=== PATIENT | female | born 1985 | race Caucasian/White ===

== ENCOUNTER → 2016-10-14 | Outpatient (CLI) | payer OTHER ==
--- NOTE | 2016-10-14 10:38 | US ---
EXAMINATION TYPE: US OB anatomy transabd DATE OF EXAM: 10/14/2016 10:20 AM COMPARISON: NONE HISTORY: spine not well visualized on prior exam at [facility] TECHNIQUE: Transabdominal (TA) pelvic ultrasound. EXAM MEASUREMENTS: GESTATIONAL AGE / DATING Physician Established: (28 weeks/0 days) EDC: 01/06/17 Dates by LMP: not established Dates by First Scan: no prior exam here Dates by Current Scan for: (27 weeks/4 days) EDC: 01/09/17 SURVEY IUP: Single PLACENTA: Posterior PREVIA: No previa YASH: 12.8 cm Normal CERVICAL LENGTH (transabdominal: norm > 3.0cm): 3.4 cm BIOMETRY PRESENTATION: Vertex LIE: Longitudinal BPD: 6.8 cm 27 weeks / 3 days HC: 25.2 cm 27 weeks / 3 days AC: 24.2 cm 28 weeks / 3 days FL: 5.4 cm 28 weeks / 3 days ESTIMATED WEIGHT IN GRAMS: 1196 grams ESTIMATED WEIGHT IN LBS/OZS: 2 lbs. 10 oz. WEIGHT PERCENTAGE BASED ON ESTABLISHED DATE: 46.2 % HC/AC: 1.05 normal FL/AC: 22.14 normal HEART RATE: 147 bpm RHYTHM: Normal ANATOMY SEEN (within normal limits): * Lateral Vent (< 1 cm) 0.5 cm * Cisterna Magna (< 1.1 cm) 0.4 cm * Nuchal Fold (< 0.6 cm) 0.4 cm * Cerebellum (varies with age) 3.0 cm Choroid Plexus (bilateral) Midline Falx Cavus Septi Pellucidi Four Chamber Heart Outflow tracts: LVOT/RVOT Stomach Situs Nose / Lips Diaphragm Kidneys (bilateral) Bladder Cord Insert Three Vessel Cord Longitudinal Spine Transverse Spine Arms (bilateral) Legs (bilateral) TECHNOLOGIST IMPRESSION: Single viable IUP 27wks/4days with JUSTIN of 01/09/17 Single live intrauterine gestation is identified on current study. There is no ultrasound evidence fo r placenta previa. Amniotic fluid index is within normal limits. biometry measurements are jennifer ruent and within normal limits. Detailed anatomical survey shows no suspicious abnormality during edu l-time scanning and still images saved. There is satisfactory 2 view visualization of entire spine id entified. IMPRESSION: As above, normal study.
== END | disposition home or self-care (01) ==
LOC: RADUSWWP 09:33
PROVIDERS: ATTEND Obstetrics & Gynecology
DX: Z36 Encounter for antenatal screening of mother (principal); Z3A.27 27 weeks gestation of pregnancy
CPT/HCPCS: 76811

== ENCOUNTER 2016-12-30 05:59 | Inpatient (IN) | payer OTHER ==
[2016-12-30 06:35] VITALS: BMI 41.1
[2016-12-30] MEDS ORDERED: CITRIC ACID-SODIUM CITRATE 15 ML CUP PO ONE (06:40)
[2016-12-30] MEDS ORDERED: ceFAZolin 2 GM in SODIUM CHLORIDE 0.9% 100 ML IVPB ONE (06:40)
[2016-12-30] MEDS: LACTATED RINGERS 1,000 ML IV SCH ×3 (06:43→23:21)
[2016-12-30 07:18] LABS: Basophils % (A) 0 %; CHCM 35.4; Eosinophils # (A) 0.1 k/uL (0-0.7); Eosinophils % (A) 1 %; HCT 34.2 % (34.0-46.0); HDW 3.51; HGB 11.9 gm/dL (11.4-16.0); Luc # (Auto) 0.28; Luc % (Auto) 3; Lymphocytes # (A) 2.3 k/uL (1.0-4.8); Lymphocytes % (A) 28 %; MCH 30.7 pg (25.0-35.0); MCHC 34.8 g/dL (31.0-37.0); MCV 88.3 fL (80.0-100.0); Mean Platelet Volume 7.3; Monocytes # (A) 0.6 k/uL (0-1.0); Monocytes % (A) 7 %; Neutrophils # (A) 5.1 k/uL (1.3-7.7); Neutrophils % (A) 61 %; Poikilocytosis Slight; RBC 3.88 m/uL (3.80-5.40); RDW 13.9 % (11.5-15.5); WBC 8.3 k/uL (3.8-10.6); WBC (Perox) 8.83
[2016-12-30] MEDS ORDERED: KETOROLAC 30 MG/ML 1 ML VIAL ONE (07:58)
[2016-12-30] MEDS ORDERED: OXYTOCIN 10 UNIT/ML 1 ML VIAL ONE (07:58)
[2016-12-30] MEDS ORDERED: MORPHINE SULFATE (PF) 0.3 MG/0.3 ML SYR ONE (07:58)
[2016-12-30] MEDS ORDERED: PHENYLEPHRINE-0.9% NACL SYG 1 MG/10 ML SYRINGE ONE (07:58)
[2016-12-30] MEDS ORDERED: ONDANSETRON 4 MG/2 ML VIAL ONE (07:58)
[2016-12-30] MEDS ORDERED: NALBUPHINE 10 MG/ML AMPUL ONE (07:58)
[2016-12-30] MEDS ORDERED: NALOXONE 0.4 MG/ML 1 ML VIAL IV PRN ×2 (08:20→08:46)
[2016-12-30] MEDS ORDERED: MORPHINE SULFATE 4 MG/ML SYRINGE IVP PRN (08:20)
[2016-12-30] MEDS ORDERED: METOCLOPRAMIDE 5 MG/ML 2 ML VIAL IVP PRN ×2 (08:20→08:46)
[2016-12-30] MEDS ORDERED: ONDANSETRON 4 MG/2 ML VIAL IVP PRN ×2 (08:20→08:46)
[2016-12-30] MEDS ORDERED: diphenhydrAMINE 50 MG/ML 1 ML VIAL IVP PRN ×3 (08:20→08:46)
[2016-12-30] MEDS ORDERED: diphenhydrAMINE 25 MG CAP PO PRN (08:46)
[2016-12-30] MEDS ORDERED: diphenhydrAMINE 50 MG CAP PO PRN (08:46)
[2016-12-30] MEDS ORDERED: ACETAMINOPHEN TAB 325 MG TAB PO PRN (08:46)
[2016-12-30] MEDS ORDERED: Acetaminophen-Codeine 300-30mg TAB PO PRN (08:46)
[2016-12-30] MEDS ORDERED: ZOLPIDEM 5 MG TAB PO PRN (08:46)
--- NOTE | 2016-12-30 08:50 | P.HPOB ---
History of Present Illness H&P Date: 12/30/16 Chief Complaint: Intrauterine at term: Previous section: Family planning Patient is a 31-year-old at 39 weeks gestation arise for repeat low transverse section with tubal ligation. Risks/benefits alternatives were reviewed. All questions were answered for her prior to proceeding to the operating room. Precis course has been generally unremarkable macrosomia has been X suspected due to the large size and history of macular baby in the past. Pertinent labs do include O+ blood type Rh antibody negative, rubella, immune hepatitis B surface antigen and RPR were negative. She was late to care this is predominantly due to the fact that she initially bleeding she was moving to [place] and therefore did not initiate care early on. She does have a medical history is Likely and narcolepsy but has had no significant issues with that throughout the gestation. On physical exam vital signs are stable and afebrile. Heart regular, lungs clear, extremities without pain. Abdomen soft gravid uterus is noted. heart tones 140s and have been reactive. Assessment intrauterine at term with previous section. Family planning. Plan repeat low transverse section with tubal ligation Past Medical History Additional Past Medical History / Comment(s): Cataplexy & narcolepsy History of Any Multi-Drug Resistant Organisms: None Reported Past Surgical History: Orthopedic Surgery Additional Past Surgical History / Comment(s): D&C Past Anesthesia/Blood Transfusion Reactions: No Reported Reaction Past Psychological History: No Psychological Hx Reported Smoking Status: Current every day smoker Past Alcohol Use History: None Reported Additional Past Alcohol Use History / Comment(s): Pt states she smokes 1/2 ppd Past Drug Use History: None Reported Additional Drug Use History / Comment(s): quit kit offered, pt refused - Past Family History Father Family Medical History: Hypertension Medications and Allergies Home Medications Medication Instructions Recorded Confirmed Type No Known Home Medications [No 10/29/16 12/30/16 History Known Home Medications] Allergies Allergy/AdvReac Type Severity Reaction Status Date / Time No Known Allergies Allergy Verified 12/30/16 06:20 Exam Osteopathic Statement: *. No significant issues noted on an osteopathic structural exam other than those noted in the History and Physical/Consult. - Vital Signs Vital signs: Vital Signs Temp Pulse Resp BP Pulse Ox 12/30/16 06:19 96.0 F L 110 H 18 135/80 96 Intake and Output 12/29/16 12/30/16 12/30/16 22:59 06:59 14:59 Other: Weight 115.666 kg Results Result Diagrams: 12/30/16 06:25
--- NOTE | 2016-12-30 08:54 | P.OP ---
Date of Procedure: 12/30/16 Preoperative Diagnosis: Intrauterine at term: Previous section: Family planning Postoperative Diagnosis: Same Procedure(s) Performed: Repeat low transverse section with bilateral partial salpingectomy Implants: Anesthesia: spinal Surgeon: Macario Sauceda Faculty Instructor #1: Flory Costa Estimated Blood Loss (ml): 600 IV fluids (ml): 500 Urine output (ml): 200 Pathology: other (Placenta) Condition: stable Disposition: floor Indications for Procedure: Operative Findings: Male scores of 9 and 9 at one and 5 minutes respectively and weight was 9 lbs. 0 oz. Description of Procedure: Patient was taken to the operating suite where a spinal anesthetic was found be adequate. She was prepped and draped in the normal sterile fashion and placed in dorsal supine position with leftward tilt. Initially a Pfannenstiel skin incision was made and this incision was then carried through to underlying layer of the fascia was second knife. Fascia was then nicked in the midline and this opening was extended laterally with Samuels scissors. Superior and inferior aspect of this incision were then grasped tented up and bluntly and sharply dissected off the rectus muscles. Rectus muscles were then divided midline and sharp dissection through the peritoneum was made. This opening was then extended superiorly and inferiorly with good visualization of both bowel bladder. Bladder blade was then placed and the vesicouterine peritoneum identified. This tissue was entered sharply with Metzenbaum scissors and this opening was extended across face the uterus with the bladder flap being digitally created. Knife was then used to incise uterus hemostat was used to completely perforate the uterine incision clear fluid is noted at this point. Incision was then bluntly opened and head was atraumatically delivered. Baby was delivered from left occiput anterior position and once baby's head was delivered mouth nares were bulb suctioned. Anterior posterior shoulders were then delivered gentle downward and upward traction followed by the remainder the baby. Umbilical cord was then clamped cut usual fashion an nursery personnel was present to assume care. Placenta was then delivered intact and Pitocin was added to the IV. Uterus was then exteriorized cleared of clots and debris and closed in 2 layers with 0 Vicryl suture. Should be noted that along the left-hand margin due to the thinness of the lower uterine segment 2 small windows were noted and were closed using transverse suture. Once excellent hemostasis was obtained attention was turned to the fallopian tubes. First the right tube the left tube had a hemostat attached 3 cm from uterine cornu and a weighted window was created in the mesosalpinx. 2 proximal to distal 2-0 silk sutures were then placed and intervening approximately 2 cm segment was excised and tips were cauterized. Blood and debris was then suctioned from the posterior cul-de-sac and the uterus was reinserted into the abdomen. Peritoneal layer was closed with 0 Vicryl suture fascial layer was closed Lobac suture one layer of 3-0 Vicryl was placed in deep subcuticular tissues to reapproximate the skin and the skin was then closed with 3-0 Vicryl in a Meño needle. Sponge, lap, needle counts were all correct 2. Patient was then taken to the recovery room in stable and satisfactory condition.
[2016-12-30] MEDS: KETOROLAC 30 MG/ML 1 ML VIAL IVP PRN (18:38)
[2016-12-30] MEDS: SENNOSIDES-DOCUSATE SODIUM 1 EACH TAB PO SCH (20:02)
[2016-12-31] MEDS: KETOROLAC 30 MG/ML 1 ML VIAL IVP PRN ×2 (00:14→07:46)
[2016-12-31] MEDS: SENNOSIDES-DOCUSATE SODIUM 1 EACH TAB PO SCH ×2 (07:46→21:55)
[2016-12-31 08:02] LABS: Basophils % (A) 0 %; CH 31.2; CHCM 34.7; Eosinophils # (A) 0.1 k/uL (0-0.7); Eosinophils % (A) 1 %; HCT 29.7 % (34.0-46.0); HDW 3.32; HGB 10.2 gm/dL (11.4-16.0); Luc % (Auto) 3; Lymphocytes # (A) 1.8 k/uL (1.0-4.8); Lymphocytes % (A) 19 %; MCHC 34.3 g/dL (31.0-37.0); MCV 90.4 fL (80.0-100.0); Mean Platelet Volume 7.5; Monocytes # (A) 0.5 k/uL (0-1.0); Monocytes % (A) 6 %; Neutrophils # (A) 6.6 k/uL (1.3-7.7); Neutrophils % (A) 71 %; RBC 3.28 m/uL (3.80-5.40); RDW 13.8 % (11.5-15.5); WBC 9.3 k/uL (3.8-10.6); WBC (Perox) 9.77
--- NOTE | 2016-12-31 08:39 | P.PN ---
Progress Note - Text Date: 12-31-16 Time: 707 The patient is status post section Vital signs stable VAS: 0-10 Patient has no complaints of pain. The patient incurred some minimal itching yesterday, this itching is now subsiding. Pain meds to be managed by service.
--- NOTE | 2016-12-31 11:21 | P.PNOBGPC ---
Subjective - Subjective Principal diagnosis: Postop day 1 Interval history: Patient is a very well. She is involuting, voiding tolerating her diet. She is passing flatus. Her abdomen is soft her uterus is firm and her incision is clean dry and intact. Heart regular, lungs clear, extremities without pain. Vital signs are stable she is afebrile. Assessment postop day 1. Plan continue current care. Patient reports: Reports appetite normal : doing well Objective - Vital Signs Latest vital signs: Vital Signs Temp Pulse Resp BP Pulse Ox 12/31/16 08:00 98.2 F 93 16 111/62 97 12/31/16 04:00 98.3 F 103 H 16 113/74 96 12/30/16 23:37 98.2 F 90 16 95/65 96 12/30/16 20:00 97.9 F 86 16 105/62 96 12/30/16 16:00 97.9 F 93 16 120/73 95 Intake and Output 12/30/16 12/31/16 12/31/16 22:59 06:59 14:59 Intake Total 700 Output Total 350 550 Balance -350 150 Intake: IV 400 Lactated Ringers 1,000 ml 400 @ 125 mls/hr IV .Q8H SIMRAN Rx#:[id number] Oral 300 Output: Urine 350 550 Uretheral (Lynn) 150 Other: # Voids 1 1 1 - Labs Labs: Abnormal Lab Results - Last 24 Hours (Table) 12/31/16 Range/Units 07:09 RBC 3.28 L (3.80-5.40) m/uL Hgb 10.2 L (11.4-16.0) gm/dL Hct 29.7 L (34.0-46.0) %
[2016-12-31] MEDS: Acetaminophen-Codeine 300-30mg TAB PO PRN ×2 (15:37→21:55)
[2016-12-31] MEDS: IBUPROFEN 600 MG TAB PO PRN (18:11)
[2017-01-01] MEDS: IBUPROFEN 600 MG TAB PO PRN ×2 (01:33→11:03)
[2017-01-01] MEDS: Acetaminophen-Codeine 300-30mg TAB PO PRN ×2 (07:54→13:53)
[2017-01-01] MEDS: SENNOSIDES-DOCUSATE SODIUM 1 EACH TAB PO SCH (07:54)
[2017-01-01 08:32] VITALS: BP 122/68; PULSE 86; RESP 17; TEMP 97.7
--- NOTE | 2017-01-01 09:37 | P.DS ---
Providers Date of admission: 12/30/16 05:59 Expected date of discharge: 01/01/17 Attending physician: Macario Sauceda Primary care physician: Stated None - Discharge Diagnosis(es) (1) Status post repeat low transverse section Current Visit: Yes Status: Acute Hospital Course: Patient was admitted for a repeat low transverse and underwent this procedure without complication. She'll be discharged home postoperative operative day #2 in stable condition to follow-up with Dr. Sacueda in 1 week. Plan - Discharge Summary New Discharge Prescriptions: New Acetaminophen-Codeine 300-30mg [Tylenol #3] 1 tab PO Q4H PRN #30 tablet PRN Reason: Pain Ibuprofen [Motrin] 600 mg PO Q6HR PRN #30 tab PRN Reason: Pain Discharge Medication List Acetaminophen-Codeine 300-30mg [Tylenol #3] 1 tab PO Q4H PRN #30 tablet [Rx] Ibuprofen [Motrin] 600 mg PO Q6HR PRN #30 tab 12/31/16 [Rx] Follow up Appointment(s)/Referral(s): Macario Sauceda DO [Doctor of Osteopathic Medicine] - 1 Week Activity/Diet/Wound Care/Special Instructions: no heavy lifting, limit stairs and driving and pelvic rest. If any high temperatures, heavy bleeding, or severe pain call my office Discharge Disposition: HOME SELF-CARE
== END 2017-01-01 14:20 | disposition home or self-care (01) | DRG 766 ==
LOC: 4FBP 05:59
PROVIDERS: ADMIT Obstetrics & Gynecology; ATTEND Obstetrics & Gynecology
PROC: 0UB70ZZ Excision of Bilateral Fallopian Tubes, Open Approach (ICD-10-PCS; principal; 2016-12-30 08:11)
PROC: 10D00Z1 Extraction of Products of Conception, Low, Open Approach (ICD-10-PCS; principal; 2016-12-30 08:11)
DX: O34.211 Maternal care for low transverse scar from previous cesarean delivery (principal); F17.210 Nicotine dependence, cigarettes, uncomplicated; Z37.0 Single live birth; O99.334 Smoking (tobacco) complicating childbirth; Z3A.39 39 weeks gestation of pregnancy; Z30.2 Encounter for sterilization
CPT/HCPCS: 85025; 86850; 86900; 86901; 88302; 88307

== ENCOUNTER → 2017-04-07 | Outpatient (CLI) | payer OTHER ==
--- NOTE | 2017-04-07 15:08 | PN ---
PROGRESS NOTE A 31-year-old lady who has been followed in Sleep Center for treatment of narcolepsy. Patient had been diagnosed with narcolepsy several years ago. Diagnosis was confirmed by multiple sleep latency tests with a very short mean sleep latency only 2.7 minutes with 4 sleep onset REM periods. Because of several pregnancies, patient was off her regular medications. Before she was on Prozac for cataplexy episodes and Nuvigil for daytime sleepiness and with these medications, she felt significant improvement of her symptoms. At the present time, without medications she continued to have episodes of cataplexy, several times a week, episodes of sleep paralysis and also significant excessive daytime sleepiness. [place] Sleepiness Scale increased to 13 today questioning. Patient does not take any medications at the present time at all. PHYSICAL EXAM: lady without distress. BP 125/73, HR 73, RR 16, height 65-1/2, weight 220.8, BMI 36.0. ABDOMEN: Slightly obese. HEENT PERRLA, EOMI, evaluation of oropharynx showed tongue protrudes midline. Neck Supple, no JVD. Thyroid is not palpable. LUNGS Clear to percussion and to auscultation. Good air exchange. No wheezing or rhonchi. HEART S1, S2 regular. No murmurs, gallops, or rubs. EXTREMITIES No clubbing or cyanosis. 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 Cranial nerves 2 to 7 intact. There is no fasciculation or atrophy. noted. No focal deficits observed. IMPRESSION: 1. Narcolepsy with cataplexy. Patient continued to have symptoms of significant excessive daytime sleepiness, cataplexy and sleep paralysis. 2. Mild obesity. Patient increased her weight comparing with the previous visit on 22 pounds. 3. No snoring during the sleep. 4. Status post surgery on her right hand. 5. Status post surgery for nasal septal deviation in 2011. PLAN: 1. Patient will be started on Prozac 20 mg in the morning. 2. Nuvigil 250 mg in the morning. 3. Daytime naps permitted. 4. Sleep hygiene with regular time in bed for at least 8 hours. 5. Preferable position in the sleep on the side. 6. No driving if feeling any sleepiness. Patient is aware about civil and criminal liability for unsafe driving. Thank you very much for allowing me to participate in the management of your patient. Sincerely, Junior Sheehan MD, PhD, FAASM Diplomat of [place] [employer] [place] [employer] [facility] [place] MMCLARENCE / SARTHAK: [id number] /
== END ==
LOC: SLEEP 10:21
PROVIDERS: ATTEND Internal Medicine
DX: G47.411 Narcolepsy with cataplexy (principal); E66.9 Obesity, unspecified; Z98.890 Other specified postprocedural states

== ENCOUNTER 2019-04-10 06:34 | Emergency (ER) | payer BC, OTHER ==
[2019-04-10 06:38] VITALS: BP 130/85; PULSE 74; RESP 18; TEMP 97.5
--- NOTE | 2019-04-10 07:03 | ED ---
Lower Extremity Injury HPI - General Chief Complaint: Extremity Injury, Lower Stated Complaint: ankle injury Time Seen by Provider: 04/10/19 06:40 Source: patient, RN notes reviewed Mode of arrival: ambulatory Limitations: no limitations - History of Present Illness Initial Comments: 32-year-old female presents emergency Department chief complaint of right ankle injury. Patient states she locked herself out of her house she is attempting to climb into her window states that the chair she has standing on slipped out causing her fall into a reyna and rolled her ankle. Patient points of lateral ankle pain. Patient had previous sprain 2 months ago. Patient denies any foot or proximal leg pain. Recent denies any head injury no loss conscious. - Related Data Previous Rx's Medication Instructions Recorded Acetaminophen-Codeine 300-30mg 1 tab PO Q4H PRN #30 tablet 12/31/16 [Tylenol #3] Ibuprofen [Motrin] 600 mg PO Q6HR PRN #30 tab 12/31/16 Allergies Allergy/AdvReac Type Severity Reaction Status Date / Time No Known Allergies Allergy Verified 12/30/16 06:20 Review of Systems ROS Statement: Those systems with pertinent positive or pertinent negative responses have been documented in the HPI. ROS Other: All systems not noted in ROS Statement are negative. Past Medical History Additional Past Medical History / Comment(s): Cataplexy & narcolepsy History of Any Multi-Drug Resistant Organisms: None Reported Past Surgical History: Orthopedic Surgery Additional Past Surgical History / Comment(s): D&C Past Anesthesia/Blood Transfusion Reactions: No Reported Reaction Past Psychological History: No Psychological Hx Reported Smoking Status: Current every day smoker Past Alcohol Use History: None Reported Past Drug Use History: None Reported - Past Family History Father Family Medical History: Hypertension General Exam Limitations: no limitations General appearance: alert, in no apparent distress Head exam: Present: atraumatic, normocephalic, normal inspection Neck exam: Present: normal inspection, full ROM. Absent: tenderness, meningismus, lymphadenopathy Respiratory exam: Present: normal lung sounds bilaterally. Absent: respiratory distress, wheezes, rales, rhonchi, stridor Cardiovascular Exam: Present: regular rate, normal rhythm, normal heart sounds. Absent: systolic murmur, diastolic murmur, rubs, gallop, clicks Extremities exam: Present: other (Right ankle there is tenderness to lateral malleoli region, swelling noted, neurovascular intact there is no foot tenderness Refill less than 2 seconds pedal pulses equal bilaterally, no proximal tib-fib tenderness) Course Vital Signs 04/10/19 06:35 Temperature 97.5 F L Pulse Rate 74 Respiratory 18 Rate Blood Pressure 130/85 O2 Sat by Pulse 100 Oximetry Medical Decision Making - Medical Decision Making 33-year-old female presented for right ankle injury x-rays were obtained and reviewed there are no acute fracture. Patient has a right ankle sprain. Patient was placed in a stirrup Aircast will follow-up with orthopedics as needed return parameters were discussed. Disposition Clinical Impression: Right ankle sprain Disposition: HOME SELF-CARE Condition: Stable Instructions (If sedation given, give patient instructions): Ankle Sprain (ED) Additional Instructions: Please return to the Emergency Department if symptoms worsen or any other concerns. Is patient prescribed a controlled substance at d/c from ED?: No Referrals: Srinath Epps MD [Medical Doctor] - 1-2 days Time of Disposition: 07:14
--- NOTE | 2019-04-10 07:55 | XR ---
EXAMINATION TYPE: XR ankle complete RT DATE OF EXAM: 04/10/2019 CLINICAL HISTORY: Rolling injury with pain. TECHNIQUE: Frontal, lateral and oblique images of the right ankle are obtained. COMPARISON: None. FINDINGS: [id number] soft tissue swelling over the lateral malleolus There is no acute fractur e/dislocation evident in the right ankle. The ankle mortise appears within normal limits. IMPRESSION: Soft tissue swelling without acute fracture or dislocation in the right ankle.
== END 2019-04-10 07:18 | disposition home or self-care (01) ==
LOC: EC 06:34
DX: S93.401A Sprain of unspecified ligament of right ankle, initial encounter (principal); F17.200 Nicotine dependence, unspecified, uncomplicated; W01.0XXA Fall on same level from slipping, tripping and stumbling without subsequent striking against object, initial encounter; X50.1XXA Overexertion from prolonged static or awkward postures, initial encounter; Y93.31 Activity, mountain climbing, rock climbing and wall climbing; Y92.009 Unspecified place in unspecified non-institutional (private) residence as the place of occurrence of the external cause
CPT/HCPCS: 29515; 99283

== ENCOUNTER → 2022-02-10 | Outpatient (CLI) | payer OTHER ==
--- NOTE | 2022-02-10 17:02 | P.SLEEP ---
History of Present Illness DATE: 02/10/2022 CONSULTATION/NEW PATIENT EVALUATION HISTORY OF PRESENT ILLNESS/SLEEP-WAKE EVALUATION: 36year old lady had been evaluated in the sleep center for narcolepsy1 with cataplexy. Last time I evaluated patient in our institution in 2016. Patient has history of narcolepsy with cataplexy diagnosed in 2013 by multiple sleep latency test. Test showed extremely short sleep latency 2.7 minutes with 4 REM onset sleep. Previously patient was treated with different medications including Provigil and Adderall. Patient is off medications for last several months. She continued to have episodes of cataplexy during the day. Previously she was treated with Prozac but it was not very effective. 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 SLEEP SCHEDULE: Usually sleep schedule on weekdays from 9 AM until 3 PM, during days off from 11 PM to 9 AM. FALLING ASLEEP: Usually no problems with the falling asleep. No TV in bedroom. Usually patient sleeps on the side position. DURING SLEEP: Patient snores and wakes up from sleep every 2 hours with one episode of nocturia positive history of sleep on paralysis. Positive history of abnormal neurological hallucinations. DURING THE DAY/WAKE STATE: Patient feels significant sleepiness during the day has difficulties to pay attention, falling asleep during the day, watery about her sleep. [place] Sleepiness Scale significantly increased to 14. PAST MEDICAL HISTORY: Increasing weight comparing with the previous sleep study on 32 pounds PAST SURGICAL HISTORY: 2, surgery for nasal septum deviation 2011, surgery for right hand MEDICATIONS: None SOCIAL HISTORY: Positive for smoking one pack per day for about 10 years , alcohol consumption occasional. FAMILY HISTORY: Hypertension REVIEW OF SYSTEMS: Snoring, multiple awakenings from sleep, significant excessive daytime sleepiness, episodes of cataplexy up to several times a week. No fevers. No double vision. No recent chest pain. No shortness of breath. No abdominal pain. No bleeding episodes. No blood in urine. No seizure episodes. PHYSICAL EXAMINATION: GENERAL: A pleasant patient without any distress. VITAL SIGNS: BP 134/90 , HR 84 , RR 16 , weight 185.8 pounds, height 5 foot 6 inches, body mass 29.8 . HEENT: PERRLA, EOMI. Evaluation of oropharynx showed tongue protrudes midline, low position of soft palate Mallampati 23. NECK: Supple. No JVD. Thyroid is not palpable. 15 inches in circumference. LUNGS: Clear to percussion and to auscultation. Good air exchange. No wheezing or rhonchi. HEART: S1, S2 regular. No murmurs, gallops or rubs. ABDOMEN: Soft and nontender. Bowel sounds are present. No organomegaly appreci ated. EXTREMITIES: No clubbing or cyanosis. COMPLIANCE AND CONTROL ANALYST: Awake, alert, and oriented x3. Cranial nerves 2 to 7 intact. There is no fasciculation or atrophy noted. No focal deficits observed. ASSESSMENT: 1. Narcolepsy1 with cataplexy. 2. Sleep on paralysis. 3 snoring, multiple awakenings from sleep, increasing weight 132 pounds comparing with the previous sleep study which was negative for obstructive sleep apnea hypopnea syndrome. Possible obstructive sleep apnea hypopnea syndrome. 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 5 overweight borderline to obesity body mass index 29.8. PLAN: 1. Polysomnography for evaluation of patient's breathing during sleep. 2. CPAP/BiPAP titration if sleep study confirms obstructive sleep apnea- hypopnea syndrome. 3. Preferable position during sleep on the side. 4. No driving if patient feels any sleepiness. Patient is aware of civil and criminal liability for unsafe driving. 5. Sleep hygiene with regular sleep time for at least 7.5-8 hours. 6. Watching weight. 7. Adderall 20 mg in the morning and to 10 mg at 1 PM for prevention significant excessive daytime sleepiness. 8. I discussed with patient to start sideway for treatment of sleepiness and cataplexy, but at the present time we decided not to start that medication. 9. Follow-up visit in 46 months or earlier if patient has any problems. Thank you very much for allowing me to participate in management of your patient Sincerely, Junior Sheehan MD, PhD, FAASM. Diplomat of [place] [employer], Sleep Medicine Board by [place] [employer] [place] [employer] [facility] [place] Past Medical History Additional Past Medical History / Comment(s): Cataplexy & narcolepsy History of Any Multi-Drug Resistant Organisms: None Reported Past Surgical History: Orthopedic Surgery Additional Past Surgical History / Comment(s): D&C Past Anesthesia/Blood Transfusion Reactions: No Reported Reaction Past Psychological History: No Psychological Hx Reported Past Alcohol Use History: None Reported Past Drug Use History: None Reported - Past Family History Father Family Medical History: Hypertension Medications and Allergies Home Medications Medication Instructions Recorded Confirmed Type Acetaminophen-Codeine 300-30mg 1 tab PO Q4H PRN #30 tablet 12/31/16 Rx [Tylenol #3] Ibuprofen [Motrin] 600 mg PO Q6HR PRN #30 tab 12/31/16 Rx Allergies Allergy/AdvReac Type Severity Reaction Status Date / Time No Known Allergies Allergy Verified 12/30/16 06:20 Sleep Note - Sleep Note Sleep Note: Temperature: Pulse Rate: Respiratory Rate: Blood Pressure: SpO2: Height: Weight: BMI: Neck Circumference:
== END ==
LOC: SLEEP 14:37
PROVIDERS: ATTEND Internal Medicine
DX: G47.411 Narcolepsy with cataplexy (principal); G47.53 Recurrent isolated sleep paralysis; E66.3 Overweight; Z68.29 Body mass index [BMI] 29.0-29.9, adult; F17.210 Nicotine dependence, cigarettes, uncomplicated
CPT/HCPCS: 99211

== ENCOUNTER → 2022-05-26 | Outpatient (CLI) | payer OTHER ==
--- NOTE | 2022-05-26 15:38 | P.PN ---
Subjective DATE: 05/26/2022 FOLLOW UP VISIT. Patient returned to sleep center for follow-up visit related to treatment of significant excessive daytime sleepiness secondary to narcolepsy. The patient is on treatment with Adderall 20 mg in the morning and 10 mg early afternoon. With this regimen patient continued to feel sleepiness in the afternoon time, feels better if she takes 20 mg of Adderall afternoon. . [place] sleepiness scale is 11. MAPS score was checked, in normal range. MEDICATIONS:1. Adderall 20 mg in the morning and 10 mg afternoon During physical exam: GENERAL: A pleasant patient without any distress. VITAL SIGNS: BP 115/64, HR 94, RR 16 , weight 182, temperature 98.1, oxygen saturation at room air 99% . HEENT: PERRLA, EOMI. NECK: Supple. No JVD. LUNGS: Clear to percussion and to auscultation. Good air exchange. No wheezing or rhonchi. HEART: S1, S2 regular. ABDOMEN: Soft and nontender. EXTREMITIES: No clubbing or cyanosis. PROPERTY SITE MANAGER: Awake, alert, and oriented x3. No focal deficit. Impressions: 1. Narcolepsy type I 2. History of sleep on paralysis. 3. No complaints on snoring at the present time. 4. Presently patient works at daytime.. Plan: 1. Patient will continue treatment with Adderall, dose will be increased to 20 mg twice a day. 2. Sleep hygiene with regular time in bed for at least 8 hours. 3. Daytime naps permitted 4. Precautions related to driving. No driving if feel any sleepiness. Patient is aware about civil and criminal liability for unsafe driving, promised to follow recommendations. 5. Follow up visit in 4-6 months or earlier if patient has any problems. Thank you very much for allowing me to participate in the management of your patient. Junior Sheehan MD, PhD, FAASM. Diplomat of [place] [employer], Sleep Medicine Board by [place] [employer] Plumber Gas[employer]itter [facility] [place]
== END ==
LOC: SLEEP 14:40
PROVIDERS: ATTEND Internal Medicine
DX: G47.419 Narcolepsy without cataplexy (principal); G47.53 Recurrent isolated sleep paralysis; F17.200 Nicotine dependence, unspecified, uncomplicated
CPT/HCPCS: 99212

== ENCOUNTER → 2024-02-09 | Outpatient (CLI) | payer OTHER ==
[2024-02-09 14:56] VITALS: BP 109/71; PULSE 74; RESP 16; TEMP 98.4
--- NOTE | 2024-02-09 18:17 | P.PROGSL ---
Objective - Vital Signs Vital Signs: Vital Signs Temp 98.4 F 02/09/24 14:55 Pulse 74 02/09/24 14:55 Resp 16 02/09/24 14:55 BP 109/71 02/09/24 14:55 Pulse Ox 95 02/09/24 14:55 FiO2 Intake & Output 02/08/24 02/09/24 02/09/24 18:59 06:59 18:59 Weight 98.656 kg Home Medications: Home Medications Medication Instructions Recorded Confirmed Type Acetaminophen-Codeine 300-30mg 1 tab PO Q4H PRN #30 tablet 12/31/16 Rx [Tylenol #3] Ibuprofen [Motrin] 600 mg PO Q6HR PRN #30 tab 12/31/16 Rx Dextroamphetamine/Amphetamine 20 mg PO BID 30 Days #60 tab 08/05/22 Rx [Adderall] FLUoxetine HCL [PROzac] 20 mg PO DAILY 02/09/24 02/09/24 History buPROPion [Wellbutrin] 150 mg PO DAILY 02/09/24 02/09/24 History
--- NOTE | 2024-02-15 10:38 | P.PROGSL ---
Subjective DATE: 02/09/2024 FOLLOW UP VISIT. Patient returned to sleep center for follow-up visit related to treatment of significant excessive daytime sleepiness secondary to narcolepsy. Patient is on treatment with Adderall 20 mg twice a day. With this regimen patient able to control his alertness well. [place] sleepiness scale is 11. During physical exam: GENERAL: A pleasant patient without any distress. HEENT: PERRLA, EOMI. NECK: Supple. No JVD. LUNGS: Clear to percussion and to auscultation. Good air exchange. No wheezing or rhonchi. HEART: S1, S2 regular. ABDOMEN: Soft and nontender. EXTREMITIES: No clubbing or cyanosis. SUPERVISOR PRODUCTION MANAGING: Awake, alert, and oriented x3. No focal deficit. Vital Signs Temp 98.4 F 02/09/24 14:55 Pulse 74 02/09/24 14:55 Resp 16 02/09/24 14:55 BP 109/71 02/09/24 14:55 Pulse Ox 95 02/09/24 14:55 FiO2 Intake & Output 02/08/24 02/09/24 02/09/24 18:59 06:59 18:59 Weight 98.656 kg Home Medications: Home Medications Medication Instructions Recorded Confirmed Type Acetaminophen-Codeine 300-30mg 1 tab PO Q4H PRN #30 tablet 12/31/16 Rx [Tylenol #3] Ibuprofen [Motrin] 600 mg PO Q6HR PRN #30 tab 12/31/16 Rx Dextroamphetamine/Amphetamine 20 mg PO BID 30 Days #60 tab 08/05/22 Rx [Adderall] FLUoxetine HCL [PROzac] 20 mg PO DAILY 02/09/24 02/09/24 History buPROPion [Wellbutrin] 150 mg PO DAILY 02/09/24 02/09/24 History Impressions: 1. Narcolepsy type I 2. History of sleep paralysis. 3. History of snoring in the past. Plan: 1. Patient will continue treatment with Adderall 20 mg twice a day 2. Sleep hygiene with regular time in bed for at least 8 hours. 3. Daytime naps permitted 4. Precautions related to driving. No driving if feel any sleepiness. Patient is aware about civil and criminal liability for unsafe driving, promised to follow recommendations. 5. Follow up visit in 4-6 months or earlier if patient has any problems. Thank you very much for allowing me to participate in the management of your patient. Junior Sheehan MD, PhD, FAASM. Diplomat of [place] [employer], Sleep Medicine Board by [place] [employer] Bi Tri Operator of [facility] [place] Objective - Vital Signs Vital Signs: Vital Signs Temp 98.4 F 02/09/24 14:55 Pulse 74 02/09/24 14:55 Resp 16 02/09/24 14:55 BP 109/71 02/09/24 14:55 Pulse Ox 95 02/09/24 14:55 FiO2 Home Medications: Home Medications Medication Instructions Recorded Confirmed Type Acetaminophen-Codeine 300-30mg 1 tab PO Q4H PRN #30 tablet 12/31/16 Rx [Tylenol #3] Ibuprofen [Motrin] 600 mg PO Q6HR PRN #30 tab 12/31/16 Rx Dextroamphetamine/Amphetamine 20 mg PO BID 30 Days #60 tab 08/05/22 Rx [Adderall] FLUoxetine HCL [PROzac] 20 mg PO DAILY 02/09/24 02/09/24 History buPROPion [Wellbutrin] 150 mg PO DAILY 02/09/24 02/09/24 History
== END ==
LOC: 3 N SLEEP 14:34
PROVIDERS: ATTEND Internal Medicine
DX: G47.419 Narcolepsy without cataplexy (principal); F17.200 Nicotine dependence, unspecified, uncomplicated; Z87.39 Personal history of other diseases of the musculoskeletal system and connective tissue
CPT/HCPCS: 99212

== ENCOUNTER → 2024-03-02 | Outpatient (CLI) | payer OTHER ==
--- NOTE | 2024-03-28 13:26 | MM ---
Reason for Exam: Screening (asymptomatic). Baseline mammogram. Patient History: Menarche at age 11. First Full-Term at age 29. Late child-bearing (after 29). Premenopausal. Last menstrual period: 02/26/2024 Risk Values: Ana 5 year model risk: 0.7%. NCI Lifetime model risk: 13.7%. Prior Study Comparison: Patient's first Mammogram. Tissue Density: The breasts are almost entirely fatty. Findings: Analyzed By CAD. Right breast: There is no suspicious group of microcalcifications or new suspicious mass. Left breast: There is no suspicious group of microcalcifications or new suspicious mass. Overall Assessment: Negative, BI-RAD 1 Management: Screening Mammogram of both breasts in [address] [facility] will attempt to contact patient to return for supplemental views and ultrasound if indicated. Patient should continue monthly self-breast exams. A clinical breast exam by your physician is recommended on an annual basis. This exam should not preclude additional follow-up of suspicious palpable abnormalities. Note on Ana scores and lifetime risk: 1. A Ana score greater than 3% is considered moderate risk. If this is the case, consider specialist referral to assess eligibility for a risk reducing agent. 2. If overall lifetime risk for the development of breast cancer is 20% or higher, the patient may qualify for future screening with alternating mammogram and breast MRI. Electronically signed and approved by: German Ardon DO
== END | disposition home or self-care (01) ==
LOC: RADMAMWWP 13:17
PROVIDERS: ATTEND Family Medicine
DX: Z12.31 Encounter for screening mammogram for malignant neoplasm of breast (principal)
CPT/HCPCS: 77067

== ENCOUNTER → 2024-08-09 | Outpatient (CLI) | payer OTHER ==
[2024-08-09 16:58] VITALS: BP 118/83; PULSE 115; RESP 16; TEMP 98.4
--- NOTE | 2024-08-09 17:22 | P.PROGSL ---
Subjective DATE: 08/09/2024 FOLLOW UP VISIT. Patient returned to sleep center for follow-up visit related to treatment of significant excessive daytime sleepiness secondary to narcolepsy. Patient is on treatment with Adderall 20 mg twice a day. With this medication patient is able to control her alertness most of the time. Occasionally she still has episodes of cataplexy as reaction on laughing. [place] sleepiness scale is increased to 14. MEDICATIONS: Please see below. During physical exam: GENERAL: A pleasant patient without any distress. VITAL SIGNS: Please see below, weight 216 pounds, BMI 35.7. HEENT: PERRLA, EOMI. NECK: Supple. No JVD. LUNGS: Clear to percussion and to auscultation. Good air exchange. No wheezing or rhonchi. HEART: S1, S2 regular. ABDOMEN: Soft and nontender. EXTREMITIES: No clubbing or cyanosis. SURVEILLANCE INVESTIGATOR: Awake, alert, and oriented x3. No focal deficit. Impressions: 1. Narcolepsy type I 2. History of sleep paralysis. 3. History of snoring in the past. 4. Mild obesity, BMI 35.7. Plan: 1. Patient will continue treatment with Adderall 20 mg twice a day 2. Sleep hygiene with regular time in bed for at least 8 hours. 3. Daytime naps permitted 4. Precautions related to driving. No driving if feel any sleepiness. Patient is aware about civil and criminal liability for unsafe driving, promised to foll ow recommendations. 5. Follow up visit in 4-6 months or earlier if patient has any problems. 6. I discussed with patient possibility to start Xyrem which could be used for treatment of daytime sleepiness and also for cataplexy episodes. Patient will think about that. Thank you very much for allowing me to participate in the management of your patient. Junior Sheehan MD, PhD, FAASM. Diplomat of [place] [employer], Sleep Medicine Board by [place] [employer] Feed Adviser of [facility] [place] Objective - Vital Signs Vital Signs: Vital Signs Temp 98.4 F 08/09/24 16:57 Pulse 115 H 08/09/24 16:57 Resp 16 08/09/24 16:57 BP 118/83 08/09/24 16:57 Pulse Ox 96 08/09/24 16:57 FiO2 Intake & Output 08/08/24 08/09/24 08/09/24 18:59 06:59 18:59 Weight 97.976 kg Home Medications: Home Medications Medication Instructions Recorded Confirmed Type Acetaminophen-Codeine 300-30mg 1 tab PO Q4H PRN #30 tablet 12/31/16 Rx [Tylenol #3] Ibuprofen [Motrin] 600 mg PO Q6HR PRN #30 tab 12/31/16 Rx Dextroamphetamine/Amphetamine 20 mg PO BID 30 Days #60 tab 08/05/22 08/09/24 Rx [Adderall] FLUoxetine HCL [PROzac] 20 mg PO DAILY 02/09/24 08/09/24 History buPROPion [Wellbutrin] 150 mg PO DAILY 02/09/24 08/09/24 History
== END ==
LOC: 3 N SLEEP 16:19
PROVIDERS: ATTEND Internal Medicine
DX: G47.33 Obstructive sleep apnea (adult) (pediatric) (principal); G47.419 Narcolepsy without cataplexy; G47.53 Recurrent isolated sleep paralysis; R06.83 Snoring; E66.9 Obesity, unspecified; F17.210 Nicotine dependence, cigarettes, uncomplicated; Z68.35 Body mass index [BMI] 35.0-35.9, adult
CPT/HCPCS: 99212